=== PATIENT | male | born 1940 | race Caucasian/White ===

== ENCOUNTER 2018-02-11 09:10 | Outpatient (REF) | payer BC, SELFPAY ==
[2018-02-11 23:12] LABS: Anion Gap 6.9 mmol/L (3-11); BUN 23 mg/dL (7-18); CO2 31.1 mmol/L (21.0-32.0); Calcium 8.7 mg/dL (8.5-10.1); Chloride 101 mmol/L (98-107); Cholesterol 159 mg/dL (50-200); Glucose 105 mg/dL (70-100); HDL Cholesterol 54 mg/dL (40-60); LDL CHOLESTEROL 79 mg/dL (<100); Potassium 4.1 mmol/L (3.5-5.1); Sodium 139 mmol/L (136-145); Triglyceride 150 mg/dL (30-150)
== END 2018-02-11 09:30 ==
LOC: NCHCN 09:10
PROVIDERS: PCP Internal Medicine; Visit Provider Internal Medicine
DX: I25.10 Atherosclerotic heart disease of native coronary artery without angina pectoris (principal)
CPT/HCPCS: 80048; 80061; 83721

== ENCOUNTER 2019-01-13 10:20 | Outpatient (REF) | payer BC, SELFPAY ==
[2019-01-13 21:38] LABS: Anion Gap 7.3 mmol/L (3-11); BUN 23 mg/dL (7-18); CO2 31.7 mmol/L (21.0-32.0); CREATININE 1.02 mg/dL (0.70-1.30); Calcium 8.9 mg/dL (8.5-10.1); Calculated LDL 92 mg/dL; Chloride 101 mmol/L (98-107); Cholesterol 173 mg/dL (50-200); Glucose 101 mg/dL (70-100); HDL Cholesterol 61 mg/dL (40-60); Potassium 4.3 mmol/L (3.5-5.1); Sodium 140 mmol/L (136-145); Triglyceride 104 mg/dL (30-150)
== END 2019-01-13 10:40 ==
LOC: NCHCN 10:20
PROVIDERS: PCP Internal Medicine; Visit Provider Internal Medicine
DX: I10 Essential (primary) hypertension (principal); I25.10 Atherosclerotic heart disease of native coronary artery without angina pectoris
CPT/HCPCS: 80048; 80061; 83721

== ENCOUNTER 2020-02-14 09:50 | Outpatient (REF) | payer BC, SELFPAY ==
[2020-02-14 21:44] LABS: ALT 81 U/L (16-63); AST 58 U/L (15-37); Albumin 3.3 g/dL (3.4-5.0); Alkaline Phosphatase 158 U/L (46-116); Anion Gap 6.2 mmol/L (3-11); BUN 18 mg/dL (7-18); CO2 31.8 mmol/L (21.0-32.0); CREATININE 0.91 mg/dL (0.70-1.30); Calcium 9.1 mg/dL (8.5-10.1); Calculated LDL 82 mg/dL (<100); Chloride 105 mmol/L (98-107); Cholesterol 173 mg/dL (<200); Glucose 116 mg/dL (74-106); HDL Cholesterol 75 mg/dL (40-60); Hemoglobin A1C 5.8 % (<5.7); Potassium 3.7 mmol/L (3.5-5.1); Sodium 143 mmol/L (136-145); Total Protein 7.6 g/dL (6.4-8.2); Triglyceride 82 mg/dL (<150)
== END 2020-02-14 10:10 ==
LOC: NCHCN 09:50
PROVIDERS: PCP Internal Medicine; Visit Provider Internal Medicine
DX: I10 Essential (primary) hypertension (principal); R73.9 Hyperglycemia, unspecified; R74.0 Nonspecific elevation of levels of transaminase and lactic acid dehydrogenase [LDH]; I25.10 Atherosclerotic heart disease of native coronary artery without angina pectoris
CPT/HCPCS: 80053; 80061; 83036

== ENCOUNTER 2020-03-07 08:49 | Outpatient (REF) | payer BC, SELFPAY ==
[2020-03-07 21:17] LABS: HCT 45.4 % (40.0-50.0); HGB 15.4 g/dL (13.5-17.5); MCHC 33.9 % (32.0-36.0); MCV 103.2 fL (80-95); MPV 12.1 fL (8.0-11.0); Platelet Count 208 10^3/uL (130-400); RDW 12.9 % (11.8-14.1); RDW-SD 49.5 fL; WBC 6.65 10^3/uL (4.4-10.8)
[2020-03-07 22:05] LABS: INR 1.1 (0.9-1.1)
== END 2020-03-07 09:09 ==
LOC: NCHCN 08:49
PROVIDERS: PCP Internal Medicine; Visit Provider Internal Medicine
DX: R74.01 Elevation of levels of liver transaminase levels (principal)
CPT/HCPCS: 85027; 85610

== ENCOUNTER 2020-10-27 09:40 | Outpatient (REF) | payer BC, SELFPAY ==
--- OUTSIDE RECORDS SUMMARY | 2020-10-27 09:43 | XMS_ITS ---
:1940 Author Care Team Providers Name Role Phone DR. GEOVANNA VERA Primary Care Provider [phone] Allergies Code Code System Name Reaction Severity Status Onset NKDA ? Medications Name Status Start Date Stop Date ? ? Accupril 40 mg tablet Active ? Not availa ble Take 1 tablet every day by oral route. Aspir-Low 81 mg tablet,delayed release Active ? Not available Take 1 tablet every day by oral route. aspirin 325 mg tablet Completed ? 07/05/2019 Take 1 tablet every day by oral route. COVID-19 vacc,mRNA(Moderna)-PF Active ? N ot available LAST INJ. 07/28/20 Crestor 5 mg tablet Active ? Not availabl e Take 1 tablet every other day by oral route as directed for 90 days. hydrochlorothiazide 25 mg tablet Active ? Not available Take 1 tablet every day by oral route. metoprolol succinate ER 25 mg capsule sprinkle, ext. release 24 hr Completed ? 08/02/2019 Take 1 capsule every day by oral route. metoprolol succinate ER 25 mg tablet,extended release 24 hr Acti ve ? Not available Take 1 tablet every day by oral route. Toprol XL 50 mg tablet,extended release Completed ? 07/05/2019 Take 1 tablet every day by oral route. Notes: 08/30/20 per pt ar Problems Name Status Onset Date Source ? Hyperlipidemia Active ? History Benign Essential Hypertension Active ? Hi story Chronic Ischemic Heart Disease Active ? E ncounter Procedures Date Name Performed by ? 08/18/2001 Cardiac Catheterization Information not available Notes: [facility], URGENT CABG 11/10/2012 Electrocardiogram [facility] [address] [facility] [address] [place], [place] [address] (Work Place) 11/19/2013 Electrocardiogram [facility] [address] [facility] [address] [place], [place] [address] (Work Place) 12/16/2014 Electrocardiogram [facility] [address] [place], [place] [address] (Work Place) 01/19/2016 Electrocardiogram [facility] [address] [place], [place] [address] (Work Place) 09/19/2017 Electrocardiogram [facility] [address] [place], [place] [address] (Work Place) 04/23/2018 Electrocardiogram [facility] [address] [place], [place] [address] (Work Place) 07/05/2019 [facility]ogram [facility] [address] [place], [place] [address] (Work Place) 08/30/2020 [facility] [address] [place], [place] [address] (Work Place) Results Lab Results Date Name Specimen Result Interpretation Description Value Range Status Address ? 10/22/2006 Left Ventricular ? Ejection 50% ? ? Ejection Fraction Fraction ? Electrocardiogram ? No observation ? ? ? [facility]: [address] [facility] [address] ? Electrocardiogram ? No observation ? ? ? Cardiology recorded. [facility] [address], [place] ? Electrocardiogram ? No observation ? ? ? Cardiology recorded. [facility] [address], [place] ? Electrocardiogram ? No observation ? ? ? Cardiology recorded. [facility]: [address], [place] Past Encounters 08/30/2020 Benign Essential Hypertension; Chronic I schemic Heart Disease; Hyperlipidemia Reynaldo Johns MD: [address] [place], [place] [address] [place] [address], Ph. 07/05/2019 Benign Essential Hypertension; Chronic I schemic Heart Disease; Hyperlipidemia Reynaldo Johns MD: [facility] [place] [address], Ph. Social History Tobacco Smoking Status Former Smoker Notes: QUIT LO NG TIME AGO, 20+ YEARS AGO Vaccine List None recorded. Plan of Care Reminders Provider Appointments None ? ? recorded. Lab None ? ? recorded. Referral None ? ? recorded. Procedures None ? ? recorded. Surgeries None ? ? recorded. Imaging None ? ? recorded. Vitals 08/30/2020 11:20AM Follow Up 20 Weight Blood Pressure 203.6 lbs 140/70 mm[Hg] 07/05/2019 01:20PM Follow Up 20 Height Weight BMI Blood Pressure 5 ft 11 in 196 lbs 27.3 kg/m2 114/70 mm[Hg] 04/23/2018 01:00PM Follow Up 20 Height Weight BMI Blood Pressure 5 ft 11 in 199 lbs 27.8 kg/m2 140/80 mm[Hg] 09/19/2017 02:20PM Follow Up 20 Height Weight BMI Blood Pressure 5 ft 11 in 201 lbs 28 kg/m2 140/90 mm[Hg] 02/28/2017 01:40PM Follow Up 20 Height Weight BMI Blood Pressure 5 ft 11 in 198 lbs 27.6 kg/m2 132/82 mm[Hg] 01/19/2016 11:20AM Per Doctor 20 Height Weight BMI Blood Pressure 5 ft 11 in 199 lbs 27.8 kg/m2 138/80 mm[Hg] 12/16/2014 11:00AM Follow Up 20 Height Weight BMI Blood Pressure 5 ft 10.5 in 203 lbs 28.7 kg/m2 142/82 mm[Hg] 11/19/2013 09:20AM Per Doctor 20 Height Weight BMI Blood Pressure 5 ft 11 in 200 lbs 27.9 kg/m2 132/80 mm[Hg] 11/10/2012 03:40PM Per Doctor 20 Height Weight BMI Blood Pressure 5 ft 11 in 205 lbs 28.6 kg/m2 150/90 mm[Hg]
--- OUTSIDE RECORDS SUMMARY | 2020-10-27 09:43 | XMS_ITS | Encounter Summary ---
:1940 Author Care Team Providers Name Role Phone Dr. Kindra Newman Primary Care Provider [phone] Reason for Visit None recorded. Assessment and Plan Assessment Note Emre is seen in follow-up today with the following issues: 1. Chronic ischemic heart disease-he con tinues to do very well from a cardiovascular standpoint following his surgery nearly 20 years ago. He has good functional capacity and continues to work full-time at the age of 80. We have not had the n eed to do any recent testing on his heart. Historically he has had good left ventricular function. We will continue him on the daily baby aspirin and medical therapy for his blood pressure and lipids. 2. Hypertension-his blood pressure is so mewhat borderline on exam today. We have previously cut back on his metoprolol succinate to 25 mg a day due to some resting bradycardia. His resting heart rate no w is in the 50s. He remains on the thiaz beena diuretic and Accupril 40 mg a day. He does check his blood pressure at home and states that it is routinely less than 140 mmHg systolic. 3. Hyperlipidemia-his lipids have been u nder generally good control on low-dose statin therapy. He historically has not tolerated the higher doses. I am happy to leave him on the rosuvastatin 3 times a week. I doubt that the rosuvastatin is t he cause for his abnormal liver function test. I have encouraged him to have follow-up with the liver team and pursue any additional imaging that is recommended. I also recommended that he try and cut b ack or even eliminate the daily use of alcohol. I will continue to see him in annual car diology follow-up or anytime sooner if new symptoms or issues arise. 1. Benign essential hypertension 2. Chronic ischemic heart diseas e ? electrocardiogram 3. Hyperlipidemia Discussion Note: None recorded.Patient educational handouts: No information available. Plan of Care Reminders Provider Appointments Follow up 20 on or Wi lindsey Johns MD 08/30/2021 Lab None recorded. ? ? Referral None recorded. ? ? Procedures None recorded. ? ? Surgeries None recorded. ? ? Imaging 08/30/2020 [facility] Medications Name Start Date ? ? Accupril 40 mg tablet ? Take 1 tablet every day by oral route. Aspir-Low 81 mg tablet,delayed release ? Take 1 tablet every day by oral route. COVID-19 vacc,mRNA(Moderna)-PF ? LAST INJ. 07/28/20 Crestor 5 mg tablet ? Take 1 tablet every other day by oral route as direct ed for 90 days. hydrochlorothiazide 25 mg tablet ? Take 1 tablet every day by oral route. metoprolol succinate ER 25 mg tablet,extended release 24 hr ? Take 1 tablet every day by oral route. Notes: 08/30/20 per pt ar Medications Administered None recorded. Vitals Weight Blood Pressure 203.6 lbs 140/70 mm[Hg] Results Lab Results None recorded. Allergies Code Code System Name Reaction Severity Onset NKDA ? ? ? Problems Name Status Onset Date Source ? Hyperlipidemia Active ? History Benign Essential Hypertension Active ? Hi story Chronic Ischemic Heart Disease Active ? E ncounter Procedures Date Name Performed by ? 08/18/2001 Cardiac Catheterization Information not available Notes: SHOCK, URGENT CABG 08/30/2020 Electrocardiogram [facility] [address] (Work [address]) Vaccine List None recorded. Social History Tobacco Smoking Status Former Smoker Notes: QUIT LO NG TIME AGO, 20+ YEARS AGO Alcohol intake Moderate Notes: 2 NIGHTLY Most Recent Tobacco Use Screening 04/23/2018 Advance directive N Caffeine intake Moderate Notes: 2 CUPS MARLEE LY Family History Relation Problem Onset Age of Age Notes Father Heart disease (No Information) N/A (No Notes) Functional Status Unknown. Past Encounters 08/30/2020 Benign Essential Hypertension; Chronic I schemic Heart Disease; Hyperlipidemia Reynaldo Johns MD: [address] , [place] [address], Ph. History of Present Illness Note: Emre is seen in follow-up today. 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 He has done very well over the course of the past 2 decades without heart failure or recurrent angina. He remains on a relatively simple medical regimen for his blood pressure and lipids. He has been on low-dose rosuvastatin 5 mg 3 times a week. His LDL cholesterol has been consistently less than 100 with an HDL in the range of 60. He has good functional capacity. 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 He has no shortness of breath or chest pressure with routine activity.His EKG shows sinus rhythm with no new ischemic abnormalities. He apparently did have abnormal liverfunction test. An ultrasound was done which suggested the possibility of a fatty liver. He is being evaluated by the liver service at the [facility]. He does drink alcohol on a daily basis. He states that he is cut back to 1-2 drinks on a daily basis. Review of Systems ? General Adult ROS Reported By: Patient Constitutional: Constitutional: no fever, no night sweats, no significant weight gain, no significant weight loss Eyes: Eyes: no vision change ENMT: Ears: no difficulty hearing Cardiovascular: Cardiovascular: ; No chest p ain, dyspnea on exertion, PND, orthopnea, pedal edema, or p alpitations Respiratory: Respiratory: no cough, no wh eezing, no shortness of breath Gastrointestinal: Gastrointestinal: no abdomin al pain, no vomiting, normal appetite, no diarrhea Genitourinary: Genitourinary: no difficulty urinating Musculoskeletal: Musculoskeletal: no muscle a ches, no muscle weakness, no arthralgias/joint pain, no b ack pain Integumentary: Skin: no jaundice, no rashes Neurologic: Neurologic: no loss of consc iousness, no weakness, no numbness, no seizures, no di zziness, no headaches Hematologic/Lymphatic: Hematologic/Lymphatic no swo llen glands, no bruising Notes: Balance of review of systems is negative. Physical Exam ? Cardiology Exam Reported By: Patient Constitutional: General Appearance: well-nou rished, well-developed, appears stated age; No apparent distress. L evel of Distress: comfortable; No apparent distress Psychiatric: Mental Status: alert, normal affect. Orientation: oriented to time, place, and person Eyes: Lids and Conjunctivae: non-i njected, anicteric, no discharge, no pallor, no arcus senilis, no xanthelasma ENMT: Lips, Teeth, and Gums: bhavin l dentition. Oropharynx: no cyanosis, no pallor Neck: Carotid Arteries: bilateral normal upstroke, no bruits, no thrills; C. Jugular Veins: n ormal jugular venous pressure. Cervical Lymph Nodes: non te nder, not enlarged. Thyroid: not enlarged, non tender, no nod ules Lungs: Respiratory Effort: unlabore d. Chest Exam: normal curvature, no thoracic deformity, no chest wall tenderness. Percussion: resonant. Auscultation: jeyson r, no wheezing, no rales, no rhonchi Cardiovascular: Precordial Exam: non displac ed focal PMI, no heaves, no precordial thrills. Rate And Rhythm: re gular; Normal S1 and S2 with no murmurs, gallops, or rubs. H eart Sounds: normal S1, physiologically split S2, no rub, no gallop, no click. Systolic Murmur: not heard. Diastolic Murmur: not heard. Extremities: no cyanosis, no edema; No clubb ing, cyanosis or edema Peripheral Pulses: Pulses: full and equal in al l extremities except if noted, no bruits appreciated. Brachial Pulse: normal. Radial Pulse: normal. Ulnar Pulse: normal. Femoral Pulse: normal. Posterior Tibialis Pulse normal. Dorsalis Pedis Pulse: normal. Popliteal Pulse: normal Abdomen: Inspection and Palpation: so ft, non distended, normal aorta, no bruit, non tender, no masses . Liver: non tender, no hepatomegaly. Spleen: non tender, no splen omegaly Musculoskeletal: Inspection: no joint tendern ess, no joint swelling, no erythema Neurologic: Gait: normal gait. Motor: no rmal strength, normal tone Skin: Inspection and Palpation: wa rm and dry. Nails: no clubbing
[2020-10-27 21:02] LABS: Hemoglobin A1C 5.8 % (<5.7)
[2020-10-27 21:11] LABS: ALT 84 U/L (16-63); AST 53 U/L (15-37); Albumin 3.4 g/dL (3.4-5.0); Alkaline Phosphatase 161 U/L (46-116); Anion Gap 7.5 mmol/L (3-11); BUN 26 mg/dL (7-18); Bilirubin, Total 0.8 mg/dL (0.2-1.0); CO2 28.5 mmol/L (21.0-32.0); CREATININE 0.9 mg/dL (0.70-1.30); Calcium 9.2 mg/dL (8.5-10.1); Chloride 105 mmol/L (98-107); Glucose 113 mg/dL (74-106); Potassium 4.5 mmol/L (3.5-5.1); Sodium 141 mmol/L (136-145); Total Protein 7.6 g/dL (6.4-8.2)
== END 2020-10-27 09:41 | disposition home or self-care (01) ==
LOC: NCHCN 09:40
PROVIDERS: PCP Internal Medicine; Visit Provider Internal Medicine
DX: K76.0 Fatty (change of) liver, not elsewhere classified (principal); I25.10 Atherosclerotic heart disease of native coronary artery without angina pectoris; R73.09 Other abnormal glucose
CPT/HCPCS: 80053; 83036

== ENCOUNTER 2021-04-25 09:56 | Outpatient (REF) | payer BC, SELFPAY ==
[2021-04-25 22:24] LABS: ALT 49 U/L (16-63); AST 55 U/L (15-37); Albumin 3.2 g/dL (3.4-5.0); Alkaline Phosphatase 158 U/L (46-116); Anion Gap 6.8 mmol/L (3-11); BUN 31 mg/dL (7-18); Bilirubin, Total 0.8 mg/dL (0.2-1.0); CO2 30.2 mmol/L (21.0-32.0); CREATININE 1.1 mg/dL (0.70-1.30); Calcium 8.5 mg/dL (8.5-10.1); Chloride 102 mmol/L (98-107); Glucose 114 mg/dL (74-106); Sodium 139 mmol/L (136-145); Total Protein 7.6 g/dL (6.4-8.2)
[2021-04-27 09:23] LABS: HBs Antibody, Quant 96.6 mIU/mL (See Note); Hepatitis B Surface Ab Positive (See Note)
[2021-04-27 09:32] LABS: Hepatitis B Surface Ag Negative (Negative)
[2021-04-27 10:16] LABS: Hepatitis C Ab w Rflx HCV PCR Negative (Negative)
== END 2021-04-25 09:57 | disposition home or self-care (01) ==
LOC: NCHCN 09:56
PROVIDERS: PCP Internal Medicine; Visit Provider Internal Medicine
DX: K76.0 Fatty (change of) liver, not elsewhere classified (principal); Z11.59 Encounter for screening for other viral diseases
CPT/HCPCS: 80053; 86706; 86803; 87340

== ENCOUNTER 2021-05-01 08:11 | Outpatient (CLI) | payer BC, SELFPAY ==
[2021-05-01 09:25] VITALS: BP 152/77; PULSE 60; RESP 16; TEMP 37.4; O2SAT 96
[2021-05-01] MEDS: Normal Saline 500 ML 30 ML IV (09:35)
[2021-05-01 09:41] VITALS: BP 138/71; PULSE 91; RESP 16; TEMP 37.3; O2SAT 97
[2021-05-01 10:13] VITALS: BP 138/72; PULSE 56; RESP 18; TEMP 37.3; O2SAT 98
[2021-05-01] MEDS: Normal Saline Flush 10 ML SYR IVP (10:15)
[2021-05-01 10:58] VITALS: BP 133/79; PULSE 54; RESP 16; TEMP 36.7; O2SAT 97
== END 2021-05-01 08:12 | disposition home or self-care (01) ==
LOC: INF 08:13
PROVIDERS: PCP Internal Medicine; Visit Provider Family Medicine
DX: U07.1 COVID-19 (principal)
CPT/HCPCS: 96365

== ENCOUNTER 2021-08-06 13:13 | Outpatient (REF) | payer BC, SELFPAY ==
[2021-08-06 21:31] LABS: HCT 28.7 % (40.0-50.0); MCH 22.1 pg (27.0-33.0); MCHC 27.9 % (32.0-36.0); MCV 79.3 fL (80-95); MPV 10.7 fL (8.0-11.0); Platelet Count 228 10^3/uL (130-400); RBC 3.62 10^6/uL (4.36-5.78); RDW 21.2 % (11.8-14.1); RDW-SD 57.4 fL; WBC 7.81 10^3/uL (4.4-10.8)
[2021-08-06 21:48] LABS: Anion Gap 9.2 mmol/L (3-11); BUN 36 mg/dL (7-18); CO2 26.8 mmol/L (21.0-32.0); CREATININE 1.2 mg/dL (0.70-1.30); Calcium 8.4 mg/dL (8.5-10.1); Chloride 106 mmol/L (98-107); Estimated GFR 57.96 (mL/min/1.73m2); Glucose 115 mg/dL (74-106); Sodium 142 mmol/L (136-145)
== END 2021-08-06 13:14 | disposition home or self-care (01) ==
LOC: NCHCN 13:13
PROVIDERS: PCP Internal Medicine; Visit Provider Internal Medicine
DX: J90 Pleural effusion, not elsewhere classified (principal)
CPT/HCPCS: 80048; 85027

== ENCOUNTER 2021-08-17 12:49 | Outpatient (REF) | payer BC, SELFPAY ==
[2021-08-17 21:13] LABS: Abs Immature Grans 0.03 10^3/uL (0.0-0.06); Absolute Basophil Count 0.06 10^3/uL (0.0-0.2); Absolute Eosinophil Count 0.06 10^3/uL (0.0-0.7); Absolute Lymphocyte Count 1.64 10^3/uL (1.2-3.4); Absolute Monocyte Count 0.87 10^3/uL (0.1-0.8); Absolute Neutrophil Count 4.47 10^3/uL (1.2-6.7); Basophils % 0.8; Eosinophils % 0.8; HCT 30.9 % (40.0-50.0); HGB 8.5 g/dL (13.5-17.5); Immature Grans % 0.4; MCH 21.9 pg (27.0-33.0); MCHC 27.5 % (32.0-36.0); MCV 79.4 fL (80-95); MPV 10.7 fL (8.0-11.0); Monocytes % 12.2; Neutrophils % 62.8; Nucleated RBC 0 %; Platelet Count 245 10^3/uL (130-400); RBC 3.89 10^6/uL (4.36-5.78); RDW 22.9 % (11.8-14.1); RDW-SD 62.3 fL; WBC 7.13 10^3/uL (4.4-10.8)
[2021-08-17 21:23] LABS: Anion Gap 10.2 mmol/L (3-11); BUN 34 mg/dL (7-18); CO2 25.8 mmol/L (21.0-32.0); CREATININE 1.3 mg/dL (0.70-1.30); Calcium 8.7 mg/dL (8.5-10.1); Chloride 103 mmol/L (98-107); Estimated GFR 52.85 (mL/min/1.73m2); Glucose 112 mg/dL (74-106); Potassium 4.3 mmol/L (3.5-5.1); Sodium 139 mmol/L (136-145)
[2021-08-17 21:46] LABS: Anisocytosis 1+; Hypochromasia 1+
== END 2021-08-17 12:50 | disposition home or self-care (01) ==
LOC: NCHCN 12:49
PROVIDERS: PCP Internal Medicine; Visit Provider Internal Medicine
DX: I50.9 Heart failure, unspecified (principal); D64.9 Anemia, unspecified
CPT/HCPCS: 80048; 85025

== ENCOUNTER 2021-08-27 19:56 | Outpatient (REF) | payer BC, SELFPAY ==
[2021-08-27 16:17] LABS: HCT 34.7 % (40.0-50.0); HGB 9.8 g/dL (13.5-17.5); MCH 22.8 pg (27.0-33.0); MCHC 28.2 % (32.0-36.0); MCV 80.9 fL (80-95); MPV 10.8 fL (8.0-11.0); Platelet Count 251 10^3/uL (130-400); RBC 4.29 10^6/uL (4.36-5.78); RDW 26.1 % (11.8-14.1); RDW-SD 73.7 fL
[2021-08-27 17:05] LABS: Anion Gap 6.5 mmol/L (3-11); BUN 36 mg/dL (7-18); CO2 32.5 mmol/L (21.0-32.0); CREATININE 1.3 mg/dL (0.70-1.30); Calcium 8.9 mg/dL (8.5-10.1); Chloride 103 mmol/L (98-107); Estimated GFR 52.85 (mL/min/1.73m2); Glucose 98 mg/dL (74-106); Magnesium 2.2 mg/dL (1.8-2.4); Potassium 4.1 mmol/L (3.5-5.1); Sodium 142 mmol/L (136-145)
== END 2021-08-27 19:57 | disposition home or self-care (01) ==
LOC: NCHCN 19:56
PROVIDERS: PCP Internal Medicine; Visit Provider Nurse Practitioner Family
DX: Z00.00 Encounter for general adult medical examination without abnormal findings (principal); D64.9 Anemia, unspecified; K76.0 Fatty (change of) liver, not elsewhere classified; I50.9 Heart failure, unspecified
CPT/HCPCS: 80048; 85027; 83735

== ENCOUNTER 2021-09-12 10:29 | Outpatient (REF) | payer BC, SELFPAY ==
[2021-09-12 16:55] LABS: Anion Gap 6.6 mmol/L (3-11); BUN 25 mg/dL (7-18); CO2 32.4 mmol/L (21.0-32.0); CREATININE 1.1 mg/dL (0.70-1.30); Calcium 8.9 mg/dL (8.5-10.1); Chloride 102 mmol/L (98-107); Glucose 113 mg/dL (74-106); Potassium 3.8 mmol/L (3.5-5.1); Sodium 141 mmol/L (136-145)
== END 2021-09-12 10:30 | disposition home or self-care (01) ==
LOC: NCHCN 10:29
PROVIDERS: PCP Internal Medicine; Visit Provider Internal Medicine
DX: I10 Essential (primary) hypertension (principal)
CPT/HCPCS: 80048

== ENCOUNTER 2022-02-05 19:48 | Outpatient (REF) | payer BC, SELFPAY ==
[2022-02-05 14:45] LABS: HCT 38.1 % (40.0-50.0); HGB 12.1 g/dL (13.5-17.5)
[2022-02-05 15:05] LABS: ALT 46 U/L (16-63); AST 43 U/L (15-37); Albumin 3.4 g/dL (3.4-5.0); Alkaline Phosphatase 141 U/L (46-116); Anion Gap 5.9 mmol/L (3-11); BUN 28 mg/dL (7-18); Bilirubin, Total 0.8 mg/dL (0.2-1.0); CO2 32.1 mmol/L (21.0-32.0); CREATININE 1.3 mg/dL (0.70-1.30); Calcium 9.1 mg/dL (8.5-10.1); Calculated LDL 59 mg/dL (<100); Chloride 100 mmol/L (98-107); Cholesterol 138 mg/dL (<200); Estimated GFR 54.51 (mL/min/1.73m2); Glucose 104 mg/dL (74-106); HDL Cholesterol 59 mg/dL (40-60); Potassium 4.2 mmol/L (3.5-5.1); Sodium 138 mmol/L (136-145); Total Protein 8.1 g/dL (6.4-8.2); Triglyceride 102 mg/dL (<150)
== END 2022-02-05 19:49 | disposition home or self-care (01) ==
LOC: NCHCN 19:48
PROVIDERS: PCP Internal Medicine; Visit Provider Nurse Practitioner Family
DX: I10 Essential (primary) hypertension (principal); E78.5 Hyperlipidemia, unspecified; D64.9 Anemia, unspecified; Z79.01 Long term (current) use of anticoagulants
CPT/HCPCS: 80053; 80061; 85014; 85018

== ENCOUNTER 2023-03-13 11:35 | Outpatient (REF) | payer BC, SELFPAY ==
[2023-03-13 16:06] LABS: HGB 15.8 g/dL (13.5-17.5); MCH 35.9 pg (27.0-33.0); MCHC 34.3 % (32.0-36.0); MCV 105 fL (80-95); MPV 12.8 fL (8.0-11.0); Platelet Count 170 10^3/uL (130-400); RDW 13.2 % (11.8-14.1); RDW-SD 51.7 fL; WBC 6.56 10^3/uL (4.4-10.8)
[2023-03-13 18:31] LABS: ALT 58 U/L (16-63); AST 47 U/L (15-37); Albumin 3.3 g/dL (3.4-5.0); Alkaline Phosphatase 175 U/L (46-116); Anion Gap 9.4 mmol/L (3-11); BUN 23 mg/dL (7-18); Bilirubin, Total 0.8 mg/dL (0.2-1.0); CO2 25.6 mmol/L (21.0-32.0); CREATININE 1.2 mg/dL (0.70-1.30); Calcium 9.6 mg/dL (8.5-10.1); Chloride 103 mmol/L (98-107); Estimated GFR 59.63 (mL/min/1.73m2); Glucose 124 mg/dL (74-106); Potassium 4.5 mmol/L (3.5-5.1); Sodium 138 mmol/L (136-145); Total Protein 8.2 g/dL (6.4-8.2)
[2023-03-13 18:43] LABS: Hemoglobin A1C 5.9 % (<5.7)
== END 2023-03-13 11:36 | disposition home or self-care (01) ==
LOC: NCHCN 11:35
PROVIDERS: PCP Internal Medicine; Visit Provider Nurse Practitioner Family
DX: I48.91 Unspecified atrial fibrillation (principal); R73.03 Prediabetes; D64.9 Anemia, unspecified
CPT/HCPCS: 80053; 85027; 83036

== ENCOUNTER 2023-09-09 13:10 | Outpatient (REF) | payer BC, SELFPAY ==
[2023-09-09 16:00] LABS: HCT 44.7 % (40.0-50.0); HGB 15.1 g/dL (13.5-17.5); MCH 35.3 pg (27.0-33.0); MCHC 33.8 % (32.0-36.0); MCV 104 fL (80-95); MPV 10.7 fL (8.0-11.0); Platelet Count 314 10^3/uL (130-400); RBC 4.28 10^6/uL (4.36-5.78); RDW 12.6 % (11.8-14.1); RDW-SD 48.2 fL; WBC 7.85 10^3/uL (4.4-10.8)
[2023-09-09 16:34] LABS: ALT 50 U/L (16-63); AST 67 U/L (15-37); Albumin 2.6 g/dL (3.4-5.0); Alkaline Phosphatase 313 U/L (46-116); Anion Gap 8.9 mmol/L (3-11); BUN 25 mg/dL (7-18); Bilirubin, Total 0.8 mg/dL (0.2-1.0); CO2 29.1 mmol/L (21.0-32.0); CREATININE 1.1 mg/dL (0.70-1.30); Calcium 9.2 mg/dL (8.5-10.1); Calculated LDL 37 mg/dL (<100); Chloride 100 mmol/L (98-107); Cholesterol 94 mg/dL (<200); Estimated GFR 66.19 (mL/min/1.73m2); Glucose 128 mg/dL (74-106); HDL Cholesterol 44 mg/dL (40-60); Potassium 4.1 mmol/L (3.5-5.1); Sodium 138 mmol/L (136-145); Total Protein 7.6 g/dL (6.4-8.2); Triglyceride 69 mg/dL (<150)
[2023-09-09 21:36] LABS: Lipase 67 U/L (16-77)
== END 2023-09-09 13:11 | disposition home or self-care (01) ==
LOC: NCHCN 13:10
PROVIDERS: PCP Internal Medicine; Visit Provider Nurse Practitioner Family
DX: K76.0 Fatty (change of) liver, not elsewhere classified (principal); E78.5 Hyperlipidemia, unspecified; R10.9 Unspecified abdominal pain
CPT/HCPCS: 80053; 80061; 83690; 85027